=== PATIENT | female | born 1975 | race Caucasian/White ===

== ENCOUNTER 2018-11-14 00:47 | Emergency (ER) | payer MEDICAID ==
[~2018-11-14] VITALS: Ht 162.6 cm; Wt 80.9 kg
[2018-11-14 00:51] VITALS: Ht 162.6 cm; Wt 80.9 kg
[2018-11-14] MEDS ORDERED: ZANTAC300 MG PO (00:52)
[2018-11-14] MEDS ORDERED: POLY-VI-SOL W/I50 ML PO (00:52)
[2018-11-14] MEDS ORDERED: IBUPROFEN400 MG PO (00:52)
[2018-11-14] MEDS ORDERED: TORADOL10 MG PO (01:15)
[2018-11-14 01:45] VITALS: BP 127/74
== END 2018-11-14 01:45 | disposition home or self-care (01) ==
LOC: D.ER 00:47
DX: S69.91XA Unspecified injury of right wrist, hand and finger(s), initial encounter (principal); Y04.2XXA Assault by strike against or bumped into by another person, initial encounter; Y93.89 Activity, other specified; Y92.89 Other specified places as the place of occurrence of the external cause; F17.200 Nicotine dependence, unspecified, uncomplicated

== ENCOUNTER 2019-09-26 20:45 | Emergency (ER) | payer SELFPAY ==
[~2019-09-26] VITALS: Ht 162.6 cm; Wt 81.8 kg
[~2019-09-26 20:45] MED LIST: IBUPROFEN400 MG PO; POLY-VI-SOL W/I50 ML PO; TORADOL10 MG PO; ZANTAC300 MG PO
[2019-09-26 20:56] VITALS: Ht 162.6 cm; Wt 81.8 kg
[2019-09-26 21:45] VITALS: BP 149/82
== END 2019-09-26 21:45 | disposition home or self-care (01) ==
LOC: D.ER 20:45
DX: M72.2 Plantar fascial fibromatosis (principal); M77.9 Enthesopathy, unspecified

== ENCOUNTER 2019-10-08 15:29 | Emergency (ER) | payer SELFPAY ==
[~2019-10-08] VITALS: Ht 162.6 cm; Wt 81.8 kg
[2019-10-08 16:10] VITALS: BP 149/105; Ht 162.6 cm; Wt 81.8 kg
== END 2019-10-08 19:07 | disposition left against medical advice (07) ==
LOC: D.ER 15:29
DX: M54.5 Low back pain (principal); Z53.21 Procedure and treatment not carried out due to patient leaving prior to being seen by health care provider

== ENCOUNTER 2020-07-11 02:27 | Emergency (ER) | payer SELFPAY ==
[~2020-07-11] VITALS: Ht 162.6 cm; Wt 65.9 kg
[2020-07-11 02:34] VITALS: Ht 162.6 cm; Wt 65.9 kg
[2020-07-11 04:00] LABS: BASOPHILS 0.6 % (0-2); EOSINOPHILS 3.3 % (0-7); HEMATOCRIT 38.1 % (36.0-48.0); HEMOGLOBIN 12.2 g/dL (12-16); IMMATURE GRANULOCYTES 0.3 % (0-5); LYMPHOCYTES 48.2 % (15-50); MCH 30.2 pg (26.0-34.0); MCV 94.3 fL (80.0-100.0); MEAN PLATELET VOLUME 12.2 fL (7.4-10.4); MONOCYTES 7.6 % (2-11); PLATELET COUNT 183 10x3/uL (130-400); RBC 4.04 10x6/uL (4.00-5.40); RDW 13.4 % (11.5-14.5); WBC 7.9 10x3/uL (4.8-10.8)
[2020-07-11 04:08] LABS: CALC OSMOLALITY 284 mosm/kg (275-300); CALCIUM 8.5 mg/dL (8.5-10.1); CARBON DIOXIDE 30.9 mmol/L (21.0-32.0); CHLORIDE - SERUM 107 mmol/L (98-107); CREATININE - SERUM 1.1 mg/dL (0.6-1.3); GLUCOSE 118 mg/dL (74-106); POTASSIUM - SERUM 3.6 mmol/L (3.5-5.1); SODIUM 143 mmol/L (136-145); UREA NITROGEN 9 mg/dL (7-18); eGFR NON AFRICAN AMERICAN 57 mL/min (90-120)
[2020-07-11 04:25] LABS: ALBUMIN 3.3 g/dL (3.4-5.0); ALKALINE PHOSPHATASE 106 U/L (30-120); ALT (SGPT) 30 U/L (10-68); BILIRUBIN - TOTAL 0.24 mg/dL (0.2-1.3); CKMB 1.7 U/L (0.0-3.6); CREATINE KINASE 177 UL (21-215); PROTEIN - SERUM 6.6 g/dL (6.4-8.2)
[2020-07-11 04:28] LABS: TROPONIN-I < 0.017 ng/mL (0.000-0.060)
[2020-07-11] MEDS ORDERED: NAPROSYN500 MG PO (05:00)
[2020-07-11] MEDS ORDERED: ULTRAM50 MG PO (05:01)
[2020-07-11 05:22] VITALS: BP 112/74
== END 2020-07-11 05:22 | disposition home or self-care (01) ==
LOC: D.ER 02:27
PROVIDERS: Family Medicine
DX: R07.89 Other chest pain (principal)

== ENCOUNTER 2020-09-01 05:07 | Day surgery (SDC) | payer OTHER ==
[~2020-09-01] VITALS: Ht 165.1 cm; Wt 82.1 kg
--- NOTE | ~2020-09-01 | OP ---
PATIENT NAME: IVET SAMUEL MEDICAL RECORD: [id number] :73 LOCATION:[facility] ADMISSION DATE: SURGEON: BRETT MATAMOROS DPM DATE OF OPERATION: 09/01/2020 PREOPERATIVE DIAGNOSIS: Plantar fasciitis, left foot. POSTOPERATIVE DIAGNOSIS: Plantar fasciitis, left foot. PROCEDURE: Instep plantar fasciotomy, left foot. ANESTHESIA: General with local infiltrate utilizing lidocaine and Marcaine plain, approximately 17 cc around the surgical site. HEMOSTASIS: Left ankle Esmarch. PREOPERATIVE DETAILS: The patient was taken to the OR and placed on the operating table in a supine position. This was followed by induction of general anesthesia and infiltration of local anesthetic. The left extremity was then prepped and draped in the usual aseptic technique followed by exsanguination with an Esmarch and the Esmarch was secured around the ankle. A 15 blade was used to create a 2 cm linear incision over the plantar aspect of her left heel just anterior to the weightbearing surface. Incision was deepened down through subcutaneous tissue. The plantar fascia was visualized with the foot held in dorsiflexion and the toes extended. A cut was made through the medial band of the plantar fascia allowing adequate length of the fascia and spreading of the fascial ends. Wound was flushed. The skin was then closed with 4-0 nylon in a simple interrupted technique. Adaptic, 4 x 4 and Conform were used to dress the wound followed by Coban. The Esmarch was removed. POSTOPERATIVE DETAILS: The patient tolerated the procedure well and left the OR with vital signs stable and vascular status at preoperative levels. The patient was transported to recovery per anesthesia in stable condition. TRANSINT:[id number] Voice Confirmation ID: [id number] DOCUMENT ID: [id number] BRETT MATAMOROS DPM CC: [id number] DICTATION DATE: 09/01/20 0750 [employer]TER: 09/01/20 1448 [facility] 09/01/20 [place] [address]
[~2020-09-01 05:07] MED LIST changes: +NAPROSYN500 MG PO; +OMNICEF300 MG PO; +ULTRAM50 MG PO
[2020-09-01 05:23] LABS: HEMATOCRIT 42.7 % (36.0-48.0); HEMOGLOBIN 13.9 g/dL (12-16); MCH 30.5 pg (26.0-34.0); MCHC 32.6 g/dL (31.0-37.0); MCV 93.8 fL (80.0-100.0); RBC 4.55 10x6/uL (4.00-5.40); WBC 10.7 10x3/uL (4.8-10.8)
[2020-09-01 06:27] VITALS: BP 126/72; Ht 165.1 cm; Wt 82.1 kg
== END 2020-09-01 09:25 | disposition home or self-care (01) ==
LOC: D.OPS 05:07
PROVIDERS: Anesthesiology; ATTEND Podiatrist
DX: M72.2 Plantar fascial fibromatosis (principal)